=== PATIENT | male | born 1935 | race Caucasian/White ===

== ENCOUNTER → 2020-03-12 | Outpatient (CLI) | payer MEDICARE | END | disposition home or self-care (01) | LOC: RAD 10:32 | PROVIDERS: ATTEND Internal Medicine Hematology & Oncology | DX: C67.9 Malignant neoplasm of bladder, unspecified (principal) | CPT/HCPCS: 36573; C1751 ==

== ENCOUNTER 2020-03-18 21:36 | Emergency (ER) | payer MEDICARE ==
[~2020-03-18] VITALS: Ht 170.2 cm; Wt 72.2 kg
[2020-03-18 21:41] VITALS: BP 124/72
--- NOTE | 2020-03-18 21:50 | NUR ---
FIRST CONTACT WITH PT, PT ASKING RN FOR PAPERWORK TO LEAVE, PT APPEARS AGITATED THAT PAPERWORK IS NOT READY, PT AMBULATING WITH A SMOOTH AND STEADY GAIT. PT NAD, P/W/D. MACKTM
--- NOTE | 2020-03-18 22:12 | NUR ---
PT GIVEN DC PAPERWORK, PT YELLING AT RN "THIS PAPERWORK IS GENERALIZED, IT REALLY TOOK YOU THIS LONG TO GET IT TO ME? THIS IS RIDICULOUS". PT INFORMED THAT THE PAPERWORK IS SPECIFIC TO HIM. PT THEN PROCEDES TO YELL AT RN THAT "I CANNOT BELIEVE YOU GUYS STUCK THAT THING IN MY MOUTH AT A TIME LIKE THIS WITH THIS VIRUS GOING AROUND". RN INFORMED PT THAT IT WAS TO TEST TEMPERATURE, PT STATED "YOU SHOULD HAVE DIFFERENT ONES! THE FOREHEAD ONES, THIS IS RIDICULOUS". NAD, SMOOTH STEADY GAIT.
== END 2020-03-18 22:16 ==
LOC: ED 22:10
DX: S40.022A Contusion of left upper arm, initial encounter (principal); X58.XXXA Exposure to other specified factors, initial encounter; Y93.89 Activity, other specified; Y92.89 Other specified places as the place of occurrence of the external cause; Y99.8 Other external cause status
CPT/HCPCS: 99281